=== PATIENT | male | born 1985 | race Caucasian/White ===

== ENCOUNTER 2020-11-17 22:55 | Emergency (ER) | payer OTHER ==
[2020-11-17] MEDS ORDERED: BACTRIM DS TAB1 EACH PO (23:59)
[2020-11-17] MEDS ORDERED: NORCO 5-325 TA1 EACH PO (23:59)
== END 2020-11-18 00:24 | disposition home or self-care (01) ==
LOC: FER 22:55
DX: L60.0 Ingrowing nail (principal); L03.011 Cellulitis of right finger; F41.9 Anxiety disorder, unspecified; F17.290 Nicotine dependence, other tobacco product, uncomplicated; Z79.899 Other long term (current) drug therapy; Z87.19 Personal history of other diseases of the digestive system